=== PATIENT | male | born 1985 | race Caucasian/White ===

== ENCOUNTER 2021-05-27 01:19 | Emergency (ER) | payer OTHER ==
[~2021-05-27] VITALS: Ht 198.1 cm; Wt 172.4 kg
[2021-05-27 03:48] VITALS: BP 150/88
== END 2021-05-27 03:47 | disposition home or self-care (01) ==
LOC: ER 01:19
DX: S20.211A Contusion of right front wall of thorax, initial encounter (principal); M25.511 Pain in right shoulder; W18.30XA Fall on same level, unspecified, initial encounter; Y93.89 Activity, other specified; Y92.89 Other specified places as the place of occurrence of the external cause; Y99.8 Other external cause status